=== PATIENT | male | born 1940 | race Caucasian/White ===

== ENCOUNTER → 2017-02-15 | Outpatient (CLI) | payer MEDICARE, OTHER ==
[~2017-02-15] MED LIST: ASPIRIN81 M1 PO; ASPIRIN81 M2 PO; EC-NAPROSYN500 MG PO; KEFLEX PO; NABUMETONE PO; PRILOSEC PO; PRILOSEC40 MG PO; TYLOX 5/500 CAP1 CAP PO; TYLOX1 CAP 5/50 PO; VOLTAREN75 MG PO; ZANTAC PO; ZOCOR PO
--- NOTE | ~2017-02-15 | CR63 ---
[facility] A Service of [facility] & [facility] RADIOLOGY TEXT RESULTS PATIENT: BUNNY GANDHI LOCATION: [facility] : 40 UNIT #: [id number] AGE: [address]: Joel Myles MD SEX: M ORDER DR: [id number] [address] [address] [id number] O MR#: [id number] Acc #: [id number] NAME: BUNNY GANDHI : 1940 SEX: M STUDY DATE/TIME: 02/15/2017 12:06 UNIT: [facility] ROOM: STUDY DESCRIPTION: CR Chest 2 View Attending Physician: Joel Myles M.D. Referring Physician: Joel Myles M.D. Ordering Physician: Joel Myles M.D. Primary Care Physician: Avinash Leung M.D. MEDICAL IMAGING REPORT This report is preliminary unless electronic signature is present. EXAM Chest 02/15/2017 [facility] HISTORY 76-year-old male patient followup kidney cancer, right kidney. History of congestion. Past smoker. COMPARISON 02/12/2016 FINDINGS PA and lateral chest views show normal cardiac size and configuration. Hilar structures and mediastinal contours are preserved. Bilateral lungs are clear with no infiltrates and no interval occurring lung nodules or effusions. Chronic disc degeneration and thoracolumbar transition partially imaged. IMPRESSION Negative and stable chest. No evidence for metastatic disease. Dictated by... Bhavin Tsang M.D. THIS IS AN ELECTRONICALLY VERIFIED REPORT Bhavin Tsang M.D. at 02/15/2017 2:21 PM JBB/to TD: 02/15/2017 14:05 JOB #: [id number] MEDICAL IMAGING REPORT [facility] A Service of [facility] & [facility] RADIOLOGY TEXT RESULTS PATIENT: BUNNY GANDHI LOCATION: [facility] : 40 UNIT #: [id number] AGE: [address]: Joel Myles MD SEX: M ORDER DR: Page 1 of 1
[2017-02-15 12:12] LABS: ALBUMIN SERUM 3.9 g/dL (3.5-5.0); BILIRUBIN,TOTAL 0.2 mg/dL (0.2-2.0); BUN/CREATININE RATIO 11.81; CALCIUM SERUM 8.7 mg/dL (8.4-10.2); CREATININE SERUM 1.1 mg/dL (0.6-1.4); GLOM FILT RATE Estimated 64.9 mL/min (>60); POTASSIUM 4.5 mmol/L (3.5-5.1)
== END | disposition home or self-care (01) ==
LOC: SRAD 11:25
PROVIDERS: Urology
DX: C64.9 Malignant neoplasm of unspecified kidney, except renal pelvis (principal)
CPT/HCPCS: 36415; 71020; 80053

== ENCOUNTER → 2017-03-22 | Outpatient (CLI) | payer MEDICARE, OTHER ==
[2017-03-22 10:33] LABS: CREATININE SERUM 1.1 mg/dL (0.6-1.4); GLOM FILT RATE Estimated 64.9 mL/min (>60)
== END | disposition home or self-care (01) ==
LOC: SLAB 09:20
DX: I71.4 Abdominal aortic aneurysm, without rupture (principal)
CPT/HCPCS: 36415; 82565; 84520

== ENCOUNTER → 2017-03-29 | Outpatient (CLI) | payer MEDICARE, OTHER ==
--- NOTE | ~2017-03-29 | CT14 ---
[facility] A Service of [facility] RADIOLOGY TEXT RESULTS PATIENT: BUNNY GANDHI LOCATION: [facility] : 40 UNIT #: [id number] AGE: [address]: Rey Barrera MD SEX: M ORDER DR: [id number] [address] [address] [id number] O MR#: [id number] Acc #: [id number] NAME: BUNNY GANDHI : 1940 SEX: M STUDY DATE/TIME: 03/29/2017 10:40 UNIT: [facility] ROOM: STUDY DESCRIPTION: CT Angio Abdomen and Pelvis Attending Physician: Rey Barrera M.D. Referring Physician: Rey Barrera M.D. Ordering Physician: Tabatha Ruiz A.P.R.N. Primary Care Physician: Avinash Leung M.D. MEDICAL IMAGING REPORT This report is preliminary unless electronic signature is present. EXAM CTA of the abdomen and pelvis with IV contrast DATE 03/29/2017 HISTORY Abdominal aortic aneurysm follow up. Patient states no current complaints. COMPARISON CT angiography of the abdomen and pelvis with IV contrast 09/29/2016. PROCEDURE 2 mm axial images were obtained from the lung bases through the upper thighs after IV contrast administration in the arterial phase. 3-D reformatted images were obtained then dedicated workstation. This CT exam was performed with one or more of the following radiation dose reduction techniques: automatic exposure control, adjustment of mA and/or kV according to patient size, and iterative reconstruction. FINDINGS Fusiform aneurysmal dilation of the infrarenal abdominal aorta beginning approximately 3 cm below the takeoff of the left renal artery, extending to the common iliac artery origins, again noted. The maximal caliber from adventitia to adventitia is 5.4 x 4.7 cm (transverse x AP) compared to 5.2 x 4.7 cm on the previous examination. There is concentric eccentric mural thrombus measuring slightly over a centimeter in maximal thickness, the mural thrombus appears increased along the anterior margin of the aneurysm compared to the previous study. 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 Moderate eccentric mural thrombus is demonstrated within it [facility] A Service of [facility] RADIOLOGY TEXT RESULTS PATIENT: BUNNY GANDHI LOCATION: [facility] : 40 UNIT #: [id number] AGE: [address]: Rey Barrera MD SEX: M ORDER DR: without flow limitation. 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 There is continuing flow throughout the common, and external iliac arteries to the level of the common femoral arteries. Infrarenal abdominal aortic aneurysm lumen currently measures 3.9 x 3.2 cm compared to 4.1 x 3.7 cm previously. There is irregular plaquing within the left renal artery but no high-grade stenosis is seen. Previously described left renal artery dissection not evident on this study. Celiac artery and SMA remain patent. Additional abdomen findings: Right nephrectomy. Colonic diverticulosis. Liver, gallbladder, spleen, pancreas and adrenal glands and left kidney within normal limits. Emphysematous changes in the lung bases. 4 mm noncalcified lingular nodule (series 6 image 11) is unchanged since 02/12/2014, in keeping with the benign finding. Additional pelvis findings: Sigmoid diverticulosis. Marked prostatic enlargement protruding into the urinary bladder. Left hip replacement. IMPRESSION 1. There is slight interval increase in fusiform infrarenal abdominal aortic aneurysm. On the current examination it measures a maximal of 5.4 cm transversely compared to 5.2 cm on 09/29/2016. On a more remote 08/19/2015 examination, it measured a maximal of 4.4 cm transversely. 2. 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 3. 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 4. 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 5. Please refer to the body of the report for additional incidental CT findings. Dictated by... Juliane Anne M.D. THIS IS AN ELECTRONICALLY VERIFIED REPORT Juliane Anne M.D. at 03/30/2017 7:09 AM PREM/arsenio TD: 03/29/2017 21:19 JOB #: [id number] MEDICAL IMAGING REPORT Page 1 of 1
[2017-03-29 10:40] LABS: POC - CREATININE 0.97 mg/dL (0.64-1.27); POC - GFR >60.0 mL/min (>60)
== END | disposition home or self-care (01) ==
LOC: SCT 10:30
PROVIDERS: Surgery Vascular Surgery
DX: I71.4 Abdominal aortic aneurysm, without rupture (principal); I72.2 Aneurysm of renal artery; I72.3 Aneurysm of iliac artery
CPT/HCPCS: 74174; 82565; Q9967